=== PATIENT | male | born 1965 | race Caucasian/White ===

== ENCOUNTER 2019-08-27 10:54 | Day surgery (SDC) | payer MEDICAID ==
[~2019-08-27] VITALS: Ht 167.6 cm; Wt 80.0 kg
[~2019-08-27 10:54] MED LIST: SODIUM CHLORIDE 0.9% 1,000 ML IV ONE
[2019-08-27] MEDS ORDERED: SODIUM CHLORIDE 0.9% 1,000 ML IV ONE (11:30)
[2019-08-27] MEDS ORDERED: WARF3TAB29 PO (11:42)
[2019-08-27] MEDS ORDERED: PROPOFOL 1% 20 ML VIAL IVP ONE (12:00)
[2019-08-27 12:26] LABS: PROTHROMBIN TIME 9.9 SEC (9.4-11.6)
== END 2019-08-27 15:20 | disposition home or self-care (01) ==
LOC: SURGERY 10:54
PROVIDERS: ATTEND Student in an Organized Health Care Education/Training Program
DX: K62.5 Hemorrhage of anus and rectum (principal); K64.8 Other hemorrhoids; Z79.01 Long term (current) use of anticoagulants; Z95.2 Presence of prosthetic heart valve; F17.200 Nicotine dependence, unspecified, uncomplicated; Z83.3 Family history of diabetes mellitus
CPT/HCPCS: 36415; 45378; 85610; 85730; 93005; J2704; J7030